=== PATIENT | female | born 1985 | race Caucasian/White ===

== ENCOUNTER → 2016-03-13 | Outpatient (CLI) | payer OTHER ==
[2016-03-13 10:54] LABS: Basophils % (A) 1 %; CH 29.5; CHCM 33.4; Eosinophils # (A) 0.2 k/uL (0-0.7); Eosinophils % (A) 4 %; HCT 40.9 % (34.0-46.0); HDW 2.56; HGB 13.7 gm/dL (11.4-16.0); Luc # (Auto) 0.09; Luc % (Auto) 2; Lymphocytes # (A) 1.7 k/uL (1.0-4.8); Lymphocytes % (A) 29 %; MCH 29.7 pg (25.0-35.0); MCHC 33.5 g/dL (31.0-37.0); MCV 88.7 fL (80.0-100.0); Mean Platelet Volume 6.5; Monocytes # (A) 0.3 k/uL (0-1.0); Monocytes % (A) 5 %; Neutrophils # (A) 3.6 k/uL (1.3-7.7); Neutrophils % (A) 61 %; RBC 4.61 m/uL (3.80-5.40); RDW 12.3 % (11.5-15.5); WBC 5.9 k/uL (3.8-10.6)
[2016-03-13 11:18] LABS: ALT 31 U/L (9-52); AST 18 U/L (14-36); Alkaline Phosphatase 58 U/L (38-126); Anion Gap 10 mmol/L; Blood Urea Nitrogen 11 mg/dL (7-17); Calcium 9.2 mg/dL (8.4-10.2); Carbon Dioxide 27 mmol/L (22-30); Chloride 104 mmol/L (98-107); Cholesterol 173 mg/dL (<200); Glucose 80 mg/dL (74-99); HDL Cholesterol 56 mg/dL (40-60); Non-African American GFR(MDRD) >60 (>60 ml/min/1.73 sqM); Potassium 4.4 mmol/L (3.5-5.1); Sodium 141 mmol/L (137-145); Total Bilirubin 1.8 mg/dL (0.2-1.3); Total Protein 7.1 g/dL (6.3-8.2); Triglycerides 53 mg/dL (<150)
[2016-03-16 07:25] LABS: Cotinine <2.0 ng/mL (<2.0); Nicotine <2.0 ng/mL (<2.0)
== END | disposition home or self-care (01) ==
LOC: LABWHC1 09:07
PROVIDERS: ATTEND Family Medicine
DX: Z00.00 Encounter for general adult medical examination without abnormal findings (principal)
CPT/HCPCS: 36415; 80053; 80061; 80323; 85025

== ENCOUNTER → 2017-03-19 | Outpatient (CLI) | payer OTHER ==
[2017-03-19 10:29] LABS: Basophils # (A) 0.1 k/uL (0-0.2); Basophils % (A) 1 %; Eosinophils # (A) 0.6 k/uL (0-0.7); Eosinophils % (A) 6 %; HCT 42.1 % (34.0-46.0); HGB 13.3 gm/dL (11.4-16.0); Lymphocytes % (A) 20 %; MCH 29.3 pg (25.0-35.0); MCHC 31.6 g/dL (31.0-37.0); MCV 92.7 fL (80.0-100.0); Mean Platelet Volume 6.9; Monocytes # (A) 0.4 k/uL (0-1.0); Monocytes % (A) 4 %; Neutrophils # (A) 6.9 k/uL (1.3-7.7); Neutrophils % (A) 69 %; Platelet Count 326 k/uL (150-450); RBC 4.55 m/uL (3.80-5.40); RDW 13.5 % (11.5-15.5)
[2017-03-19 10:41] LABS: ALT 20 U/L (9-52); AST 16 U/L (14-36); Albumin 4.2 g/dL (3.5-5.0); Alkaline Phosphatase 67 U/L (38-126); Anion Gap 10 mmol/L; Blood Urea Nitrogen 13 mg/dL (7-17); Calcium 9.3 mg/dL (8.4-10.2); Carbon Dioxide 29 mmol/L (22-30); Chloride 102 mmol/L (98-107); Cholesterol 216 mg/dL (<200); Glucose 82 mg/dL (74-99); HDL Cholesterol 74 mg/dL (40-60); LDL Cholesterol,Calculated 114 mg/dL (0-99); Potassium 4.4 mmol/L (3.5-5.1); Sodium 141 mmol/L (137-145); Total Bilirubin 0.9 mg/dL (0.2-1.3); Total Protein 6.9 g/dL (6.3-8.2); Triglycerides 142 mg/dL (<150)
== END | disposition home or self-care (01) ==
LOC: LABWHC1 09:59
PROVIDERS: ATTEND Family Medicine
DX: Z00.00 Encounter for general adult medical examination without abnormal findings (principal); F41.1 Generalized anxiety disorder
CPT/HCPCS: 36415; 80053; 80061; 84443; 85025

== ENCOUNTER 2017-08-11 09:47 | Day surgery (SDC) | payer BC, OTHER ==
[2017-08-09 09:49] VITALS: BMI 34.9
[~2017-08-11 09:47] MED LIST: LACTATED RINGERS 1,000 ML IV SCH
[2017-08-11] MEDS ORDERED: LIDOCAINE 1% 20 ML VIAL (10MG/ML) FOR IV START INTRADERMA ONE (10:12)
[2017-08-11 10:18] VITALS: TEMP 98.4
[2017-08-11] MEDS ORDERED: MIDAZOLAM 2 MG/2 ML VIAL ONE (11:03)
[2017-08-11] MEDS ORDERED: LIDOCAINE 1% INJ 10MG/ML (20 ML MDV) ONE (11:03)
[2017-08-11] MEDS ORDERED: GLYCOPYRROLATE 0.2 MG/ML 2 ML VIAL ONE (11:03)
[2017-08-11] MEDS ORDERED: PROPOFOL 10 MG/ML 20 ML VIAL IV ONE (11:03)
--- NOTE | 2017-08-11 11:29 | P.PCN ---
Date of Procedure: 08/11/17 Procedure(s) Performed: Procedure: Esophagogastroduodenoscopy and biopsy. Preoperative diagnosis: Epigastric pain and belching. Postoperative diagnosis: 1. Mild antral gastritis. 2. Multiple biopsies obtained from the duodenum, antrum and esophagus. Preparation and sedation: Was provided by anesthesia. Brief clinical history: The patient is a 31-year-old female who is scheduled for this evaluation because of epigastric pain and excessive belching that she has been experiencing for the last 4 years or so that seems to have been getting worse. She had gallbladder workup in the past including HIDA scan which , apparently, was not revealing. This evaluation is to assess for peptic ulcer disease, complicated reflux or other pathology. Procedure: With the patient on her left lateral decubitus position and after informed consent and adequate sedation, I passed the Olympus-GIF 160 video upper endoscope through the cricopharyngeus down the esophagus. GE junction was around 36 cm from the incisors and there was no definite hiatal hernia. The esophagus did not show any evidence of esophagitis or complicated reflux disease. The endoscope was then passed into the stomach which was insufflated with air and inspected in detail including the retroflex view in the cardia. There was minimal mottling and erythema in the antrum but no ulcers or erosions. Pyloric channel, duodenal bulb, post bulbar area and descending duodenum appeared within normal limits. Because of her symptoms, I obtained biopsies from the duodenum, antrum and esophagus then the endoscope was withdrawn. The patient tolerated the procedure well. Plan: The patient was reassured. Will await biopsy results. She will follow- up with you as planned and further plans can be made based on her course and biopsy results. We would be happy to see in the future if her symptoms persist.
[2017-08-11 11:50] VITALS: BP 112/75; PULSE 71; RESP 18
== END 2017-08-11 12:04 | disposition home or self-care (01) ==
LOC: ORWHC2ENDO 09:47
DX: K29.50 Unspecified chronic gastritis without bleeding (principal); J45.909 Unspecified asthma, uncomplicated; F32.9 Major depressive disorder, single episode, unspecified; K21.0 Gastro-esophageal reflux disease with esophagitis; F41.9 Anxiety disorder, unspecified; Z79.899 Other long term (current) drug therapy
CPT/HCPCS: 81025; 88305; 43239; J2250; J2001; J2704

== ENCOUNTER → 2018-03-04 | Outpatient (CLI) | payer BC ==
[2018-03-04 11:06] LABS: Basophils % (A) 1 %; Eosinophils # (A) 0.4 k/uL (0-0.7); Eosinophils % (A) 5 %; HCT 43.6 % (34.0-46.0); HGB 14.4 gm/dL (11.4-16.0); Lymphocytes # (A) 2.1 k/uL (1.0-4.8); Lymphocytes % (A) 27 %; MCH 29.6 pg (25.0-35.0); MCHC 33.1 g/dL (31.0-37.0); MCV 89.3 fL (80.0-100.0); Mean Platelet Volume 6.7; Monocytes # (A) 0.4 k/uL (0-1.0); Monocytes % (A) 5 %; Neutrophils # (A) 4.7 k/uL (1.3-7.7); Neutrophils % (A) 62 %; Platelet Count 361 k/uL (150-450); RBC 4.88 m/uL (3.80-5.40); RDW 12.7 % (11.5-15.5); WBC 7.6 k/uL (3.8-10.6)
[2018-03-04 17:10] LABS: Albumin 4.3 g/dL (3.80-4.90); Albumin/Globulin Ratio 1.79 (1.20-2.10); Calcium 9.2 mg/dL (8.7-10.3); Globulin 2.4 g/dL (1.6-3.3); LDL Cholesterol,Calculated 142.2 mg/dL (0.0-131.0); Potassium 4.6 mmol/L (3.5-5.5); Total Bilirubin 0.9 mg/dL (0.2-1.2); Total Protein 6.7 g/dL (6.2-8.2); VLDL Calculation 19.8 mg/dL (5.00-40.00)
[2018-03-04 17:19] LABS: Insulin Level 8.6 mIU/mL (3.0-25.0)
[2018-03-06 12:29] LABS: Gliadin AB IgA, Unit <0.2 U/mL
== END | disposition home or self-care (01) ==
LOC: LABWHC1 10:23
PROVIDERS: ATTEND Family Medicine
DX: Z00.00 Encounter for general adult medical examination without abnormal findings (principal); E28.2 Polycystic ovarian syndrome; T78.1XXA Other adverse food reactions, not elsewhere classified, initial encounter
CPT/HCPCS: 36415; 80053; 80061; 82785; 83001; 83002; 83516; 83525; 84443; 85025; 86003

== ENCOUNTER 2022-02-19 06:02 | Inpatient (IN) | payer BC ==
[2022-02-15 11:52] VITALS: BMI 43.8
--- NOTE | 2022-02-18 21:46 | P.HPOB ---
History of Present Illness H&P Date: 02/18/22 Chief Complaint: Scheduled repeat section This is a 36-year-old female 3 para 1 with an estimated date of confinement of 02/26/2022, estimated gestational age of 39-0/7 weeks, who presents for scheduled repeat section. She has occasional irregular contractions and good movement. Her course has been complicated by right renal dilation at approximately 24 weeks. It was thought that she had a stone however she never passed a stone and renal dilation has improved. She also did have COVID while she was . labs: GC/katya/Trichomonas-negative Hepatitis B surface antigen-negative RPR-nonreactive Rubella-immune Blood type-A+ Antibody screen-negative HIV-nonreactive Hemoglobin-13 Random glucose-87 One hour Glucola-103 Group B streptococcus-positive Obstetrical history: . History of 1 miscarriage and 1 delivery due to suspected macrosomia. That infant was 8 lbs. 13 oz. Gynecologic history: No history of sexually transmitted diseases. 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 Review of Systems Constitutional: Denies chills, Denies fever Eyes: denies blurred vision, denies pain Ears, nose, mouth and throat: Denies headache, Denies sore throat Cardiovascular: Denies chest pain, Denies shortness of breath Respiratory: Denies cough Gastrointestinal: Reports abdominal pain (Irregular contractions), Reports heartburn Genitourinary: Reports pelvic pain, Reports Musculoskeletal: Reports low back pain Integumentary: Denies pruritus, Denies rash Neurological: Denies numbness, Denies weakness Psychiatric: Reports anxiety Past Medical History Past Medical History: Asthma, GERD/Reflux Additional Past Medical History / Comment(s): HX PALPITATIONS. ENVIRONMENTAL ALLERGIES. History of Any Multi-Drug Resistant Organisms: None Reported Past Surgical History: Section Additional Past Surgical History / Comment(s): WISDOM TEETH REMOVED. Past Anesthesia/Blood Transfusion Reactions: No Reported Reaction, Motion Sickness Past Psychological History: Anxiety, Depression Smoking Status: Never smoker Past Alcohol Use History: Rare Additional Past Alcohol Use History / Comment(s): "No alcohol in years". Past Drug Use History: Marijuana Additional Drug Use History / Comment(s): Hx "Marijuana use many years ago." - Past Family History Mother Additional Family Medical History / Comment(s): BENIGN BRAIN TUMOR. Medications and Allergies Home Medications Medication Instructions Recorded Confirmed Type Cetirizine HCl [Zyrtec] 10 mg PO DAILY 02/15/22 02/15/22 History Famotidine [Pepcid] 10 mg PO BID PRN 02/15/22 02/15/22 History Vit No.179/Iron/Folic 1 each PO DAILY 02/15/22 02/15/22 History [ Tablet] Allergies Allergy/AdvReac Type Severity Reaction Status Date / Time BANDAIDS Allergy IF ON FOR Uncoded 02/15/22 11:42 LONG TIME, SKIN TURNS RED Exam Osteopathic Statement: *. No significant issues noted on an osteopathic structural exam other than those noted in the History and Physical/Consult. HEENT: Within normal limits Heart: Regular rate and rhythm Lungs: Clear to auscultation bilaterally Abdomen: Cervix: Closed/thick/-2 station heart tones: 130s by Doppler Extremities: Negative Homans Assessment and Plan (1) 39 weeks gestation of Status: Acute Code(s): Z3A.39 - 39 WEEKS GESTATION OF SNOMED Code(s): 10405744 (2) Previous delivery affecting Status: Acute Code(s): O34.219 - MATERNAL CARE FOR UNSP TYPE SCAR FROM PREVIOUS DEL SNOMED Code(s): 279744630 Plan: Proceed with repeat low transverse section. I have discussed the risks, benefits, and alternative therapies for the above- mentioned procedure and for both sedation/anesthesia as well as necessary blood products administration, if indicated, as they pertain to this patient. The patient has indicated her understanding and acceptance of the risks and procedures discussed.
[2022-02-19] MEDS ORDERED: LACTATED RINGERS 1,000 ML IV ONE (06:23)
[2022-02-19] MEDS ORDERED: CITRIC ACID-SODIUM CITRATE 15 ML CUP PO ONE (06:23)
[2022-02-19] MEDS ORDERED: LIDOCAINE 1% (10MG/ML) FOR IV START INTRADERMA PRN (06:23)
[2022-02-19 06:39] LABS: Basophils % (A) 0 %; Eosinophils # (A) 0.1 k/uL (0-0.7); Eosinophils % (A) 1 %; HGB 12.4 gm/dL (11.4-16.0); Lymphocytes % (A) 15 %; MCH 29.9 pg (25.0-35.0); MCHC 33.4 g/dL (31.0-37.0); MCV 89.5 fL (80.0-100.0); Mean Platelet Volume 8.9; Monocytes # (A) 0.6 k/uL (0-1.0); Monocytes % (A) 5 %; Neutrophils # (A) 10.5 k/uL (1.3-7.7); Neutrophils % (A) 78 %; Platelet Count 265 k/uL (150-450); RBC 4.14 m/uL (3.80-5.40); RDW 13.4 % (11.5-15.5); WBC 13.4 k/uL (3.8-10.6)
[2022-02-19] MEDS: LACTATED RINGERS 1,000 ML IV SCH ×3 (06:40→22:39)
[2022-02-19] MEDS ORDERED: NALBUPHINE 10 MG/ML (1 ML AMP) ONE (07:55)
[2022-02-19] MEDS ORDERED: ONDANSETRON 4 MG/2 ML VIAL ONE (07:55)
[2022-02-19] MEDS ORDERED: OXYTOCIN 30 UNITS/500 ML NS BAG IV ONE (07:55)
[2022-02-19] MEDS ORDERED: OXYTOCIN 10 UNIT/ML 1 ML VIAL ONE (07:55)
[2022-02-19] MEDS ORDERED: MORPHINE SULFATE (PF) 0.3 MG/0.3 ML SYR ONE (07:55)
[2022-02-19] MEDS ORDERED: PHENYLEPHRINE-0.9% NACL SYG 1,000 MCG/10 ML SYRINGE ONE (07:55)
[2022-02-19] MEDS ORDERED: KETOROLAC 15 MG/ML 1 ML VIAL ONE (07:55)
--- NOTE | 2022-02-19 08:35 | P.OP ---
Date of Procedure: 02/19/22 Preoperative Diagnosis: 1. Intrauterine at 39-0/7 weeks. 2. History of previous section. 3. Group B streptococcus positive. Postoperative Diagnosis: Same Procedure(s) Performed: Repeat low transverse section Anesthesia: spinal (Duramorph) Surgeon: Heather Blanco Estimated Blood Loss (ml): 500 Pathology: none sent Condition: stable Disposition: floor Indications for Procedure: This is a 36-year-old female 3 para 1 at 39-0/7 weeks who presented for scheduled repeat section. I have discussed the risks, benefits, and alternative therapies for the above- mentioned procedure and for both sedation/anesthesia as well as necessary blood products administration, if indicated, as they pertain to this patient. The patient has indicated her understanding and acceptance of the risks and procedures discussed. Operative Findings: A viable male is noted in the vertex presentation with scores of 8 at 1 minute and 9 at 5 minutes and infant weight of 8 lbs. 6 oz. Normal uterus tubes and ovaries are noted. Uterus does have a very thin lower uterine segment. Description of Procedure: The patient is taken to the operating room where she is placed in the dorsal supine position with leftward tilt after spinal Duramorph anesthesia is given. She is prepped and draped in the normal sterile fashion. Skin was tested and found to be adequately anesthetized. A Pfannenstiel skin incision was made with a scalpel through the previous laparotomy scar. A second knife was used to carry the incision down to the underlying layer of fascia. The fascia was nicked in the midline with a scalpel and then extended laterally bilaterally with Rodriguez scissors. The anterior lip of the fascia was grasped with 2 Albina clamps and then dissected off the underlying rectus muscle in the midline with Rodriguez scissors. The inferior aspect of the fascial incision was grasped with 2 Albina clamps and dissected off the underlying rectus muscle and the midline with Rodriguez scissors. Next the peritoneum layer was tented up with 2 hemostats and then entered sharply with the scalpel. The incision is extended superiorly and inferiorly with Metzenbaum scissors. Next a DeLee retractor is placed. The vesicouterine peritoneum is noted to be very thin and is then entered sharply with Metzenbaum scissors and extended laterally bilaterally with Metzenbaum scissors and then the bladder flap is pushed inferiorly. The lower uterine segment is incised in transverse fashion with the scalpel and then bluntly entered with a hemostat. Clear fluid is noted. The incision was then extended laterally bilaterally with 2 fingers. Next the 's head is delivered through the incision. Nose and mouth are bulb suctioned. The remainder of the is easily delivered and placed on mother's abdomen. Cord is clamped and cut. is taken to warmer by nursing staff. Uterine fundus is gently massaged and placenta is delivered manually. Uterus is exteriorized and cleared of all clots and debris. Uterine incision is closed with 0 Vicryl suture in a running locked fashion. A second layer of 0 Vicryl suture is used in a running fashion for hemostasis. Once adequate hemostasis as assured, the vesicouterine peritoneum is reapproximated with 2-0 Vicryl suture in a running fashion. Posterior cul-de-sac is suctioned of all clots and debris. Uterus is returned to the abdomen. Incision is noted to be hemostatic. Peritoneal layer is closed with 0 Vicryl suture in a running fashion. Muscle layer is reapproximated with 0 Vicryl suture in interrupted fashion. Fascia layer is then closed with 0 PDS suture with 2 sutures meeting in the midline and the knots buried in either side and in the midline. The subcutaneous tissue was then closed with 2-0 Vicryl suture. Skin layer was then closed with alicia. All sponge and needle counts are correct. The patient is taken to recovery room in stable condition.
[2022-02-19] MEDS ORDERED: HYDROmorphone 1 MG/ML 1 ML SYRINGE IVP PRN (11:09)
[2022-02-19] MEDS ORDERED: diphenhydrAMINE 25 MG CAP PO PRN (11:09)
[2022-02-19] MEDS ORDERED: LORATADINE 10 MG TAB PO SCH (11:09)
[2022-02-19] MEDS ORDERED: LANOLIN CREAM 5 GM TUBE TOPICAL PRN (11:09)
[2022-02-19] MEDS ORDERED: diphenhydrAMINE 50 MG CAP PO PRN (11:09)
[2022-02-19] MEDS ORDERED: ZOLPIDEM 5 MG TAB PO PRN (11:09)
[2022-02-19] MEDS ORDERED: NALOXONE 0.4 MG/ML 1 ML VIAL IV PRN (11:09)
[2022-02-19] MEDS ORDERED: METOCLOPRAMIDE 5 MG/ML 2 ML VIAL IVP PRN (11:09)
[2022-02-19] MEDS ORDERED: SIMETHICONE 80 MG CHEWABLE PO PRN (11:09)
[2022-02-19] MEDS ORDERED: diphenhydrAMINE 50 MG/ML 1 ML VIAL IVP PRN ×2 (11:09)
[2022-02-19] MEDS ORDERED: OXYTOCIN 30 UNITS/500 ML NS 30 UNIT in SALINE 1 500ML.BAG IV SCH (11:09)
[2022-02-19] MEDS ORDERED: HYDROmorphone 0.5 MG/0.5 ML SYRINGE IVP PRN (11:09)
[2022-02-19] MEDS ORDERED: ONDANSETRON 4 MG/2 ML VIAL IVP PRN (11:09)
[2022-02-19] MEDS: ACETAMINOPHEN TAB 500 MG TAB PO SCH ×2 (11:16→19:56)
[2022-02-19] MEDS: SENNOSIDES-DOCUSATE SODIUM 1 EACH TAB PO SCH ×2 (11:17→19:57)
[2022-02-19 11:44] LABS: Glucose,Whole Blood 92 mg/dL (70-110)
[2022-02-19] MEDS: PRENATAL VIT-IRON-FOLIC ACID 1 EACH TABLET PO SCH (12:42)
[2022-02-19] MEDS: ACETAMINOPHEN IV (For NPO) 1,000 MG in EMPTY BAG 1 BAG IVPB SCH ×2 (14:24→19:57)
[2022-02-19] MEDS: IBUPROFEN 600 MG TAB PO SCH ×2 (19:56→22:39)
[2022-02-19] MEDS: KETOROLAC 15 MG/ML 1 ML VIAL IVP SCH (19:57)
[2022-02-20] MEDS: ACETAMINOPHEN TAB 500 MG TAB PO SCH ×3 (00:21→18:05)
[2022-02-20] MEDS: FAMOTIDINE 20 MG TAB PO PRN (00:22)
[2022-02-20] MEDS: KETOROLAC 15 MG/ML 1 ML VIAL IVP SCH (01:22)
[2022-02-20] MEDS: IBUPROFEN 600 MG TAB PO SCH ×4 (01:25→21:08)
[2022-02-20 06:22] LABS: Basophils % (A) 0 %; Eosinophils # (A) 0.1 k/uL (0-0.7); Eosinophils % (A) 0 %; HCT 32.7 % (34.0-46.0); HGB 11.3 gm/dL (11.4-16.0); Lymphocytes # (A) 1.6 k/uL (1.0-4.8); Lymphocytes % (A) 12 %; MCH 31.3 pg (25.0-35.0); MCHC 34.4 g/dL (31.0-37.0); Mean Platelet Volume 8.8; Monocytes # (A) 0.8 k/uL (0-1.0); Monocytes % (A) 6 %; Neutrophils # (A) 11.1 k/uL (1.3-7.7); Neutrophils % (A) 81 %; Platelet Count 219 k/uL (150-450); RDW 13.3 % (11.5-15.5); WBC 13.7 k/uL (3.8-10.6)
--- NOTE | 2022-02-20 06:56 | P.PNOBGPC ---
Subjective - Subjective Principal diagnosis: status post repeat low transverse postop day #1 Interval history: she seen and examined. Denies nausea, vomiting, chest pain, shortness of breath or any calf pain. Patient reports: Reports appetite normal, Reports voiding normally, Reports pain well controlled, Reports ambulating normally [place]: doing well Objective - Vital Signs Latest vital signs: Vital Signs Temp Pulse Resp BP Pulse Ox 02/20/22 04:00 98.5 F 73 16 92/51 97 02/20/22 00:00 98.7 F 84 14 109/57 95 02/19/22 20:00 97.9 F 77 14 111/66 94 L 02/19/22 16:00 98.1 F 74 16 103/42 02/19/22 12:00 77 16 118/70 02/19/22 10:40 96.9 F L 85 16 108/69 02/19/22 10:10 96.3 F L 72 16 107/63 99 02/19/22 09:40 78 16 105/59 99 02/19/22 09:25 96.8 F L 75 16 96/59 98 02/19/22 09:10 78 16 110/67 98 02/19/22 08:55 82 16 110/59 98 02/19/22 08:40 96.6 F L 88 16 108/56 99 Intake and Output 02/19/22 02/19/22 02/20/22 14:59 22:59 06:59 Output Total 1060 975 500 Balance -1060 -975 -500 Output: Urine 100 975 500 Uretheral (Anton) 300 Emesis 75 Estimated Blood Loss 200 Output, Quantitative 685 Blood Loss Other: # Voids 1 1 - Exam Lungs: bilateral: normal Chest: Normal S1, Normal S2 Extremities: Present: normal Abdomen: Present: normal appearance, soft. Absent: distention, tenderness Incision: Present: normal, dry, intact Uterus: Present: normal, firm - Labs Labs: Abnormal Lab Results - Last 24 Hours (Table) 02/20/22 Range/Units 05:16 WBC 13.7 H (3.8-10.6) k/uL RBC 3.60 L (3.80-5.40) m/uL Hgb 11.3 L (11.4-16.0) gm/dL Hct 32.7 L (34.0-46.0) % Neutrophils # 11.1 H (1.3-7.7) k/uL Assessment and Plan (1) Status post repeat low transverse section Current Visit: Yes Status: Acute Code(s): Z98.891 - HISTORY OF UTERINE SCAR FROM PREVIOUS SURGERY SNOMED Code(s): 782035373 Plan: 1. Pain control 2. Increase ambulation 3. Regular diet
[2022-02-20] MEDS: PRENATAL VIT-IRON-FOLIC ACID 1 EACH TABLET PO SCH (08:52)
[2022-02-20] MEDS: SENNOSIDES-DOCUSATE SODIUM 1 EACH TAB PO SCH ×2 (08:52→21:08)
[2022-02-21] MEDS: ACETAMINOPHEN TAB 500 MG TAB PO SCH ×3 (00:10→12:29)
[2022-02-21 00:18] VITALS: RESP 16
[2022-02-21] MEDS: IBUPROFEN 600 MG TAB PO SCH ×2 (02:20→08:55)
--- NOTE | 2022-02-21 08:17 | P.PN ---
Progress Note - Text Date: 02/20/2022 Time: 7:51 The patient is status post section Vital signs stable VAS: 0-10 Patient has no complaints of pain. The patient incurred some minimal itching yesterday, this itching is now subsiding. She also incurred some nausea that is now subsiding. Pain meds to be managed by service.
[2022-02-21] MEDS: SENNOSIDES-DOCUSATE SODIUM 1 EACH TAB PO SCH (08:53)
[2022-02-21] MEDS: PRENATAL VIT-IRON-FOLIC ACID 1 EACH TABLET PO SCH (08:55)
[2022-02-21] MEDS: FAMOTIDINE 20 MG TAB PO PRN (08:55)
--- NOTE | 2022-02-21 08:59 | P.DS ---
Providers Date of admission: 02/19/22 06:02 Expected date of discharge: 02/21/22 Attending physician: Heather Blanco Primary care physician: Stated None - Discharge Diagnosis(es) (1) Status post repeat low transverse section Current Visit: Yes Status: Acute Hospital Course: Patient presented for repeat low transverse . She underwent this procedure without crepitation. She denies nausea, vomiting, chest pain, sugars of breath or calf pain. Patient will be discharged home postoperative day #2 in stable condition to follow-up with Dr. Blanco in one week. Plan - Discharge Summary Discharge Rx Participant: Yes New Discharge Prescriptions: New oxyCODONE HCL [OxyIR] 5 mg PO Q4HR PRN #18 tab PRN Reason: Pain Scale 4 - 6 Ibuprofen [Motrin] 600 mg PO Q6H #30 tab No Action Famotidine [Pepcid] 10 mg PO BID PRN PRN Reason: Indigestion Cetirizine HCl [Zyrtec] 10 mg PO DAILY Vit No.179/Iron/Folic [ Tablet] 1 each PO DAILY Discharge Medication List Cetirizine HCl [Zyrtec] 10 mg PO DAILY 02/15/22 [History] Famotidine [Pepcid] 10 mg PO BID PRN 02/15/22 [History] Vit No.179/Iron/Folic [ Tablet] 1 each PO DAILY 02/15/22 [History] Ibuprofen [Motrin] 600 mg PO Q6H #30 tab 02/21/22 [Rx] oxyCODONE HCL [OxyIR] 5 mg PO Q4HR PRN #18 tab 02/21/22 [Rx] Follow up Appointment(s)/Referral(s): Heather Blanco DO [Doctor of Osteopathic Medicine] - 04/02/22 11:30 am (Post Op Appointment 03-01-2022 at 1:30) Discharge Disposition: HOME SELF-CARE
[2022-02-21 09:10] VITALS: BP 114/65; PULSE 67; TEMP 98.3
== END 2022-02-21 12:50 | disposition home or self-care (01) | DRG 788 ==
LOC: 4FBP 06:02
PROVIDERS: ADMIT Obstetrics & Gynecology; ATTEND Obstetrics & Gynecology
PROC: 10D00Z1 Extraction of Products of Conception, Low, Open Approach (ICD-10-PCS; principal; 2022-02-19 08:00)
DX: O34.211 Maternal care for low transverse scar from previous cesarean delivery (principal); O99.344 Other mental disorders complicating childbirth; O99.52 Diseases of the respiratory system complicating childbirth; F32.A Depression, unspecified; F41.9 Anxiety disorder, unspecified; J45.909 Unspecified asthma, uncomplicated; O99.824 Streptococcus B carrier state complicating childbirth; Z37.0 Single live birth; Z3A.39 39 weeks gestation of pregnancy
CPT/HCPCS: 85025; 86850; 86900; 86901